=== PATIENT | female | born 1955 | race Caucasian/White ===

== ENCOUNTER → 2020-02-12 12:25 | Outpatient (BNVA) | payer BC, SELFPAY | PROVIDERS: Family Provider Nurse Practitioner Family; Visit Provider Nurse Practitioner Family | DX: I10 Essential (primary) hypertension (principal); F41.9 Anxiety disorder, unspecified; F32.9 Major depressive disorder, single episode, unspecified; M79.7 Fibromyalgia; K21.9 Gastro-esophageal reflux disease without esophagitis; G47.00 Insomnia, unspecified; Z79.890 Hormone replacement therapy; H66.90 Otitis media, unspecified, unspecified ear | CPT/HCPCS: 80053; 81001; 84443; 85025 ==

== ENCOUNTER → 2020-07-27 09:47 | Outpatient (BNVA) | payer MEDICARE, SELFPAY | PROVIDERS: Family Provider Nurse Practitioner Family; Visit Provider Nurse Practitioner Family | DX: Z20.828 Contact with and (suspected) exposure to other viral communicable diseases (principal); J06.9 Acute upper respiratory infection, unspecified; R53.83 Other fatigue | CPT/HCPCS: 87635 ==

== ENCOUNTER 2020-11-13 09:46 | Outpatient (CLI) | payer MEDICARE, SELFPAY ==
--- NOTE | 2020-11-13 10:00 | MM_ITS ---
WS: [id number] BILATERAL DIGITAL SCREENING MAMMOGRAPHY WITH CAD CLINICAL INFORMATION: Z12.31 - Encounter for screening mammogram for malignant neoplasm of breast HISTORY: Screening mammogram. No current complaints. COMPARISON: TECHNIQUE: Bilateral CC and MLO views. FINDINGS: Scattered fibroglandular densities bilaterally. No suspicious focal mass, asymmetry, calcifications, or architectural distortion. No evidence of malignancy. Punctate calcification right breast. MM/[place] [id number] IMPRESSION: BI-RADS: 2-Benign FOLLOW UP: 1 Year Follow-up Recommend return to annual screening mammography.
== END 2020-11-13 09:47 | disposition home or self-care (01) ==
PROVIDERS: PCP Nurse Practitioner Family; Visit Provider Nurse Practitioner Family
DX: Z12.31 Encounter for screening mammogram for malignant neoplasm of breast (principal)
CPT/HCPCS: 77067

== ENCOUNTER → 2021-02-04 12:19 | Outpatient (BNVA) | payer MEDICARE, SELFPAY | PROVIDERS: PCP Nurse Practitioner Family; Visit Provider Nurse Practitioner Family | DX: I10 Essential (primary) hypertension (principal); R53.83 Other fatigue; Z79.899 Other long term (current) drug therapy; E55.9 Vitamin D deficiency, unspecified; Z13.6 Encounter for screening for cardiovascular disorders; G47.00 Insomnia, unspecified; R06.02 Shortness of breath; F41.9 Anxiety disorder, unspecified; F32.9 Major depressive disorder, single episode, unspecified | CPT/HCPCS: 80053; 80061; 81003; 82306; 82607; 82746; 83036; 84439; 84443; 85025 ==

== ENCOUNTER → 2021-03-30 11:53 | Outpatient (BNVA) | payer MEDICARE, SELFPAY | PROVIDERS: PCP Nurse Practitioner Family; Visit Provider Nurse Practitioner Family | DX: D58.2 Other hemoglobinopathies (principal) | CPT/HCPCS: 85007; 85027 ==

== ENCOUNTER 2021-04-21 14:15 | Outpatient (CLI) | payer MEDICARE, SELFPAY ==
[2021-04-21 15:00] LABS: Basophils # 0.1 10^3/uL (0.0-0.1); Basophils % 0.5 %; Eosinophils # 0.4 10^3/uL (0.0-0.8); Eosinophils % 3.8 %; Hematocrit 45.7 % (37.0-47.0); Hemoglobin 15.6 g/dL (11.5-15.3); Lymphocytes % 50.1 %; Mean Corpuscular HGB Conc 34.1 g/dL (30.0-36.0); Mean Corpuscular Hemoglobin 32.8 pg (28.0-34.0); Mean Platelet Volume 10.8 fL (7.4-10.4); Monocytes # 0.6 10^3/uL (0.2-0.9); Monocytes % 5.6 %; Neutrophils # 3.95 10^3/uL (1.8-7.7); Neutrophils % 39.8 %; Nucleated Red Blood Cells % 0.2 %; Platelet Count 250 10^3/cmm (130-400); Red Blood Count 4.76 10^6/uL (4.1-5.3); Red Cell Distribution Width 12.6 % (12.1-15.1); White Blood Count 9.9 10^3/uL (4.0-10.0)
--- NOTE | 2021-04-21 17:17 | ONC CON_ITS ---
Dr. Wilde New Patient Note Patient: Elsi Painter Unit #: [id number]: 1955 Dicatated By: Sveta Wilde M.D.Date of Visit: Apr 21, 2021 Onc MED New Patient/Consult Referring Physician: Tia Aragon NP History of Present Illness: Ms. Elsi Painter, is a 65-year-old female with a history of asthma, fibromyalgia, anxiety/depression, hormone replacement therapy with Estratest (estrogen/testosterone) for postmenopausal symptom relief was found to have mildly elevated hemoglobin/hematocrit and white blood cell during her routine follow-up on March 30, 2021, as per medical record her hemoglobin was 16.6 normal being 11.5 to 15.3 g and hematocrit 50.4 normal being 37-47, platelets 240,000 with normal differential but absolute lymphocyte count was 5700 Patient has history of smoking but quit about 10 years ago and denies secondhand smoking and take alcohol occasionally. Denies any night sweats, denies any recurrent fever, denies any weight loss, denies any peripheral lymphadenopathy, denies any shortness of breath at rest on exertion, denies any palpitation. Denies any headaches blurred vision double vision. Past Medical History: Ms. Painter's medical history consists of anxiety, asthma, depression, fibromyalgia, gastroesophageal reflux disease, hypertension, irritable bowel syndrome with constipation, and vitamin D deficiency. Past Surgical History: Ms. Painter's surgical/procedural history consists of bunionectomy, cholecystectomy, hysterectomy, covid vaccine #2 in 2020, covid vaccine #1 in 2020, and caesarean section in 1986. Medications: Advair HFA 1 Inhalation (of 115-21 mcg/act) Aerosol Inhalation ac (tid) & at bedtime, Albuterol Sulfate Aerosol Powder, Breath Activated Inhalation PRN, clonazePAM 1 Tablet (of 0.5 mg) Oral b.i.d., Cymbalta 1 Capsule (of 60 mg) Capsule Delayed Release Particles Oral daily, Est Estrogens-Methyltest 1 Tablet (of 0.625-1.25 mg) Oral daily, Gabapentin 1 Capsule (of 300 mg) Oral t.i.d., hydroCHLOROthiazide 1 Tablet (of 25 mg) Oral daily, Metoprolol Succinate ER 1 Tablet (of 100 mg) Tablet SR 24 HR Oral daily, Omeprazole 1 Capsule (of 40 mg) Capsule Delayed Release Oral daily, traZODone HCl 1 Tablet (of 300 mg) Oral at bedtime, ZyrTEC Allergy 1 Tablet (of 10 mg) Capsule Oral daily Allergies: Clarithromycin and Codeine Sulfate. Social History: Ms. Painter is . Ms. Painter has never smoked. She drinks occasionally. 8 beers per week. Family History: Ms. Painter's mother is alive. Ms. Painter's father is . Ms. Painter has 2 brothers: 2 alive. She has 2 sisters: 2 alive. Review Of Symptoms: Review of Systems is not available for this patient. Vital Signs: Performed on Apr 21, 2021 16:15: 3, 5, 27.76, 1.88 sq.m, 66 in, 99 %, 69 /min, 18 /min, 131/77 mm(hg), 97.5 F (LOW), and 172 lbs (HIGH). Performance Status: 0 - Fully active, able to carry on all predisease activities without restrictions. (ECOG) Physical Examination: ENMT - No mouth sores, no thrush, no jaundice, no cervical or axillary lymphadenopathy, Respiratory - Lungs are clear to auscultation, Cardiovascular - Regular rate and rhythm of heart, Abdomen - Soft, bowel sounds present, Extremities - No visible edema. Lab/Imaging: Most recent lab results are not available for this patient. Impression: Mild leukocytosis/lymphocytosis etiology could be reactive versus early lymphoproliferative disorder like CLL Mildly elevated hemoglobin/hematocrit could be reactive or secondary to testosterone in hormone replacement therapy for postmenopausal symptom relief or intermittent hypoxia due to asthma or Dehydration, or primary but less likely. Postmenopausal, on hormonal therapy with Estratest Asthma History of smoking but quit 10 years ago Hypertension Plan: Discussed with patient regarding her CBC done today which showed white blood count 9.9 hemoglobin 15.6 hematocrit 45.7 platelets 250,000 and absolute lymphocyte count 5000 Clinically, patient is doing well with no B symptoms, no evidence of peripheral lymphadenopathy on physical exam, no organomegaly. Her repeat labs shows white blood count in normal range but mildly elevated lymphocyte count, hematocrit within normal range. History of mildly elevated hematocrit/leukocytosis could be due to subclinical asthma exacerbation or due to testosterone supplement part of her hormone replacement therapy but repeat lab work-up shows resolution of mild leukocytosis/lymphocytosis and mildly elevated hematocrit. At this point, no further work-up from hematology point of view rather observation, so we will see her back in 1 month with CBC Patient was also advised to establish care with pulmonology to optimize her pulmonary function and asthma care Signed By: Sveta Wilde M.D. <<Signature on File>>
== END 2021-04-21 14:16 | disposition home or self-care (01) ==
LOC: ONCMED 14:27
PROVIDERS: PCP Nurse Practitioner Family; Visit Provider Internal Medicine Hematology & Oncology
DX: D72.829 Elevated white blood cell count, unspecified (principal); Z79.899 Other long term (current) drug therapy
CPT/HCPCS: 36415; 85025; 99204

== ENCOUNTER → 2021-07-14 14:24 | Outpatient (BNVA) | payer MEDICARE, SELFPAY | PROVIDERS: PCP Nurse Practitioner Family; Visit Provider Internal Medicine Hematology & Oncology | DX: D58.2 Other hemoglobinopathies (principal); D72.820 Lymphocytosis (symptomatic); D72.829 Elevated white blood cell count, unspecified | CPT/HCPCS: 85025 ==

== ENCOUNTER → 2021-12-08 09:47 | Outpatient (BNVA) | payer MEDICARE, SELFPAY | PROVIDERS: PCP Nurse Practitioner Family; Visit Provider Nurse Practitioner | DX: Z13.6 Encounter for screening for cardiovascular disorders (principal); R53.83 Other fatigue | CPT/HCPCS: 80061; 84443 ==

== ENCOUNTER 2021-12-25 12:44 | Outpatient (CLI) | payer MEDICARE, SELFPAY ==
--- NOTE | 2021-12-25 13:02 | MM_ITS ---
WS: [id number] BILATERAL 3D TOMOSYNTHESIS DIGITAL SCREENING MAMMOGRAPHY WITH CAD CLINICAL INFORMATION: SCREENING HISTORY: Screening mammogram. No current complaints. COMPARISON: November 13, 2020 TECHNIQUE: Bilateral CC and MLO views. FINDINGS: Scattered fibroglandular densities bilaterally. Lucent centered calcification RIGHT breast. No suspic ious focal mass, asymmetry, calcifications, or architectural distortion. No evidence of malignancy. MM/[place] [id number] IMPRESSION: BI-RADS: 2-Benign FOLLOW UP: 1 Year Follow-up Recommend return to annual screening mammography.
== END 2021-12-25 12:45 | disposition home or self-care (01) ==
LOC: RAD 12:45
PROVIDERS: PCP Nurse Practitioner; Visit Provider Nurse Practitioner Family
DX: Z12.31 Encounter for screening mammogram for malignant neoplasm of breast (principal)
CPT/HCPCS: 77063; 77067

== ENCOUNTER → 2022-10-06 09:29 | Outpatient (BNVA) | payer MEDICARE, SELFPAY | PROVIDERS: PCP Nurse Practitioner; Visit Provider Family Medicine | DX: F41.9 Anxiety disorder, unspecified (principal); F32.9 Major depressive disorder, single episode, unspecified; Z78.0 Asymptomatic menopausal state; R06.02 Shortness of breath; J45.909 Unspecified asthma, uncomplicated; F51.01 Primary insomnia; M79.7 Fibromyalgia; I10 Essential (primary) hypertension; E78.5 Hyperlipidemia, unspecified; R53.83 Other fatigue; Z13.6 Encounter for screening for cardiovascular disorders; E78.1 Pure hyperglyceridemia; E66.3 Overweight; K58.1 Irritable bowel syndrome with constipation; Z79.899 Other long term (current) drug therapy | CPT/HCPCS: 80053; 80061; 83036; 84443; 85025 ==

== ENCOUNTER → 2022-11-03 09:21 | Outpatient (BNVA) | payer MEDICARE, SELFPAY | PROVIDERS: PCP Nurse Practitioner; Visit Provider Family Medicine | DX: Z79.899 Other long term (current) drug therapy (principal); F41.9 Anxiety disorder, unspecified; F32.9 Major depressive disorder, single episode, unspecified; Z78.0 Asymptomatic menopausal state; F51.01 Primary insomnia; E66.3 Overweight | CPT/HCPCS: 80307 ==

== ENCOUNTER 2022-12-28 12:36 | Outpatient (CLI) | payer MEDICARE, SELFPAY ==
--- NOTE | 2022-12-28 | MM_ITS ---
WS: [id number] BILATERAL 3D TOMOSYNTHESIS DIGITAL SCREENING MAMMOGRAPHY WITH CAD CLINICAL INFORMATION: ANNUAL SCREENING HISTORY: Screening mammogram. Chronic pain and soreness COMPARISON: December 25, 2021 TECHNIQUE: Bilateral CC and MLO views. FINDINGS: Scattered fibroglandular densities bilaterally. Increasing asymmetric density subareolar RIGHT breast measuring 11 mm best seen on the MLO view. Recommend further evaluation with spot diagnostic mammogr aphy and ultrasound. Lucent centered calcification RIGHT breast. LEFT breast is unchanged. MM/[place] [id number] IMPRESSION: BI-RADS: 0-Incomplete: Need additional imaging evaluation FOLLOW UP: Need Additional Imaging RECOMMEND RIGHT BREAST DIAGNOSTIC MAMMOGRAPHY AND ULTRASOUND.
== END 2022-12-28 12:37 | disposition home or self-care (01) ==
LOC: RAD 12:42
PROVIDERS: PCP Family Medicine; Visit Provider Nurse Practitioner
DX: Z12.31 Encounter for screening mammogram for malignant neoplasm of breast (principal)
CPT/HCPCS: 77063; 77067

== ENCOUNTER 2023-01-13 11:34 | Outpatient (CLI) | payer MEDICARE, SELFPAY ==
--- NOTE | 2023-01-13 11:40 | MM_ITS ---
WS: [id number] RIGHT 3D TOMOSYNTHESIS DIGITAL MAMMOGRAPHY WITH CAD CLINICAL INFORMATION: ABNORMAL MAMMO HISTORY: Milky discharge RIGHT breast. Additional views. COMPARISON: December 28, 2022 TECHNIQUE: 2 views of the right breast were obtained. FINDINGS: Scattered fibroglandular densities of the right breast. Previously described asymmetric density subar eolar RIGHT breast partially compresses out on the spot compression views. This persist on the SMLO v iew. Ultrasound is described below. ULTRASOUND BREAST RIGHT TECHNIQUE: Ultrasound right breast focused area of concern. CLINICAL INFORMATION: ABNORMAL MAMMO FINDINGS: Ultrasound RIGHT breast subareolar. Mild underlying ductal ectasia. No suspicious cystic or solid les ions. No suspicious lesions to target for biopsy. IMPRESSION: MM/[place] [id number] BI-RADS: 2-Benign FOLLOW UP: 1 Year Follow-up Recommend return to annual screening mammography.
--- NOTE | 2023-01-13 12:45 | US_ITS ---
WS: [id number] RIGHT 3D TOMOSYNTHESIS DIGITAL MAMMOGRAPHY WITH CAD CLINICAL INFORMATION: ABNORMAL MAMMO HISTORY: Milky discharge RIGHT breast. Additional views. COMPARISON: December 28, 2022 TECHNIQUE: 2 views of the right breast were obtained. FINDINGS: Scattered fibroglandular densities of the right breast. Previously described asymmetric density subar eolar RIGHT breast partially compresses out on the spot compression views. This persist on the SMLO v iew. Ultrasound is described below. ULTRASOUND BREAST RIGHT TECHNIQUE: Ultrasound right breast focused area of concern. CLINICAL INFORMATION: ABNORMAL MAMMO FINDINGS: Ultrasound RIGHT breast subareolar. Mild underlying ductal ectasia. No suspicious cystic or solid les ions. No suspicious lesions to target for biopsy. IMPRESSION: US/US breast RT limited* [id number] BI-RADS: 2-Benign FOLLOW UP: 1 Year Follow-up Recommend return to annual screening mammography.
== END 2023-01-13 11:35 | disposition home or self-care (01) ==
PROVIDERS: PCP Family Medicine; Visit Provider Nurse Practitioner
DX: R92.8 Other abnormal and inconclusive findings on diagnostic imaging of breast (principal); N64.52 Nipple discharge
CPT/HCPCS: 76642; 77061; G0279

== ENCOUNTER → 2023-01-18 09:53 | Outpatient (BNVA) | payer MEDICARE, SELFPAY | PROVIDERS: PCP Family Medicine; Visit Provider Family Medicine | DX: E66.3 Overweight (principal); R74.01 Elevation of levels of liver transaminase levels | CPT/HCPCS: 80053 ==

== ENCOUNTER 2024-01-12 08:24 | Outpatient (CLI) | payer MEDICARE, SELFPAY ==
--- NOTE | 2024-01-12 08:29 | XR_ITS ---
WS: [id number] Lumbar spine, 6 views, both obliques, lateral views in flexion, extension and neutral position, AP vi ew, 01/12/2024 Clinical Data: M51.16 - Intervertebral disc disorders with radiculopathy... Comparison: None. Findings: No compression fractures or subluxation is seen. There is degenerative disc narrowing at L5-S1. The l umbar vertebra L2-L5 show osteophyte formation. There is facet joint arthritis from L3-L4 to L5-S1. The transverse processes and SI joints are normal. The oblique films show no spondylolysis. On flexion and extension there is no subluxation or limitati on of motion. There are cholecystectomy clips in the right upper quadrant. XR/XR lumbar spine 6V w f/e [id number] Impression: 1. Degenerative disc narrowing at L5-S1 with multilevel osteophytes and facet j oint arthritis. 2. No spondylolysis. 3. Negative for limitation of motion or subluxation on flexion or extension.
== END 2024-01-12 08:25 | disposition home or self-care (01) ==
LOC: RAD 08:26
PROVIDERS: PCP Family Medicine; Visit Provider Nurse Practitioner Family
DX: M51.16 Intervertebral disc disorders with radiculopathy, lumbar region (principal); M25.78 Osteophyte, vertebrae; M47.816 Spondylosis without myelopathy or radiculopathy, lumbar region; M47.817 Spondylosis without myelopathy or radiculopathy, lumbosacral region
CPT/HCPCS: 72114

== ENCOUNTER 2024-03-13 06:00 | Outpatient (RCR) | payer MEDICARE, SELFPAY | END 2024-03-21 23:59 | disposition home or self-care (01) | LOC: WPT 06:00 | PROVIDERS: PCP Nurse Practitioner Family; Visit Provider Nurse Practitioner Family | DX: M51.16 Intervertebral disc disorders with radiculopathy, lumbar region (principal) | CPT/HCPCS: 97110; 97161 ==

== ENCOUNTER → 2024-03-22 08:24 | Outpatient (BNVA) | payer MEDICARE, SELFPAY | PROVIDERS: PCP Family Medicine; Visit Provider Nurse Practitioner Family | DX: Z79.890 Hormone replacement therapy (principal); Z79.899 Other long term (current) drug therapy; E55.9 Vitamin D deficiency, unspecified; E78.5 Hyperlipidemia, unspecified; I10 Essential (primary) hypertension | CPT/HCPCS: 80053; 80061; 81003; 82306; 83036; 84443; 85025 ==

== ENCOUNTER 2024-03-27 12:45 | Outpatient (CLI) | payer MEDICARE, SELFPAY ==
--- NOTE | 2024-03-27 12:55 | MM_ITS ---
WS: [id number] BILATERAL 3D TOMOSYNTHESIS DIGITAL SCREENING MAMMOGRAPHY WITH CAD CLINICAL INFORMATION: Z12.39 - Encounter for other screening for malignant neop... HISTORY: Screening mammogram. No current complaints. COMPARISON: 2022 TECHNIQUE: Bilateral CC and MLO views. FINDINGS: Scattered fibroglandular densities bilaterally. No suspicious focal mass, asymmetry, calcifications, or architectural distortion. No evidence of malignancy. Incidental lucent centered calcification RIGH T breast. MM/[place] [id number] IMPRESSION: BI-RADS: 2-Benign FOLLOW UP: 1 Year Follow-up Recommend return to annual screening mammography.
== END 2024-03-27 12:46 | disposition home or self-care (01) ==
LOC: RAD 12:46
PROVIDERS: PCP Family Medicine; Visit Provider Nurse Practitioner Family
DX: Z12.31 Encounter for screening mammogram for malignant neoplasm of breast; R92.323 Mammographic fibroglandular density, bilateral breasts
CPT/HCPCS: 77063; 77067

== ENCOUNTER 2024-06-05 15:47 | Oncology outpatient (recurring) (ONCR) | payer MEDICARE, SELFPAY ==
[2024-05-22 14:53] LABS: Basophils % 0.5 %; Eosinophils # 0.3 10^3/uL (0.0-0.8); Eosinophils % 3.1 %; Hematocrit 50.9 % (36-47); Lymphocytes # 3.5 10^3/uL (0.8-4.8); Lymphocytes % 43.1 %; Mean Corpuscular HGB Conc 33.4 g/dL (30-55); Mean Corpuscular Hemoglobin 32.1 pg (27-33); Mean Platelet Volume 9.7 fL (7.4-10.4); Monocytes # 0.7 10^3/uL (0.2-0.9); Monocytes % 8.2 %; Neutrophils # 3.62 10^3/uL (1.8-7.7); Neutrophils % 44.7 %; Nucleated Red Blood Cells % 0 %; Platelet Count 354 10^3/cmm (157-399); Red Cell Distribution Width 12.1 % (12.1-15.1); White Blood Count 8.09 10^3/uL (3.29-11.43)
[2024-05-22 15:10] LABS: Alanine Aminotransferase 43 U/L (0-33); Albumin Level 4.2 g/dL (3.5-5.2); Alkaline Phosphatase 46 U/L (35-105); Anion Gap 15.1 (5-19); Aspartate Amino Transferase 28 U/L (0-32); Blood Urea Nitrogen 5 mg/dL (8-23); Calcium 8.6 mg/dL (8.5-10.5); Carbon Dioxide 30 mmol/L (22-29); Chloride 93 mmol/L (98-107); Globulin 2.8 g/dL (1.3-4.6); Glomerular Filtration Rate 71.1 mL/min (90-130); Glucose 89 mg/dL (65-115); Lactate Dehydrogenase 284 U/L (135-214); Osmolality Calculated 275 mOsm/kg (285-295); Potassium 4.1 mmol/L (3.5-5.1); Sodium 134 mmol/L (136-145); Total Bilirubin 0.5 mg/dL (0.15-1.2)
[2024-05-22 15:32] LABS: Ferritin 225 ng/mL (15-150); Iron 87 ug/dL (37-145); Percent Saturation 30.2 % (20-50); Total Iron Binding Capacity 288 mcg/dl; Unsaturated Iron Binding 201 ug/dL (112-347)
--- NOTE | 2024-05-22 16:42 | PC.NURSE ---
4 IV attempts were attempted and patient declined any further attempts. patient rescheduled for Tuesday.
[2024-05-25 09:38] LABS: Hematocrit 48.1 % (36-47)
[2024-05-25 09:59] VITALS: BP 121/77; PULSE 66; RESP 16; TEMP 35.8; O2SAT 96
[2024-05-25 10:36] VITALS: BP 123/80; PULSE 67; RESP 16; O2SAT 97
[2024-05-25] MEDS: sodium chloride 0.9% 500 ML 999 ML IV (10:37)
[2024-05-25 10:58] VITALS: BP 146/78; PULSE 68; RESP 16; O2SAT 99
[2024-05-28 15:25] LABS: JAK2 Exon 12 Mutation NOT DETECTED (NOT DETECTED); JAK2 V617 Block Specimen ID BLOOD; JAK2 V617 Clinical Indication POLYCYTHEMIA; JAK2 V617 Mutation NOT DETECTED (NOT DETECTED); JAK2 V617 Specimen Source BLOOD; Specimen Source WB
[2024-05-29 15:48] LABS: Soluble Transferrin Receptor 0.94 mg/L (0.76-1.76)
[2024-06-05 16:11] LABS: Basophils # 0.1 10^3/uL (0.0-0.1); Basophils % 0.8 %; Eosinophils # 0.6 10^3/uL (0.0-0.8); Eosinophils % 6.8 %; Hematocrit 49.2 % (36-47); Lymphocytes % 34.6 %; Mean Corpuscular HGB Conc 34.3 g/dL (30-55); Mean Corpuscular Hemoglobin 32.1 pg (27-33); Mean Corpuscular Volume 93.5 fl (85-98); Mean Platelet Volume 9.7 fL (7.4-10.4); Monocytes # 0.5 10^3/uL (0.2-0.9); Neutrophils # 4.39 10^3/uL (1.8-7.7); Neutrophils % 51.4 %; Nucleated Red Blood Cells % 0 %; Platelet Count 346 10^3/cmm (157-399); Red Blood Count 5.26 10^6/uL (3.85-5.65); Red Cell Distribution Width 11.9 % (12.1-15.1); White Blood Count 8.53 10^3/uL (3.29-11.43)
[2024-06-05 16:16] VITALS: BP 131/65; PULSE 67; RESP 17; O2SAT 95
[2024-06-05 16:42] LABS: Alanine Aminotransferase 56 U/L (0-33); Albumin Level 4.7 g/dL (3.5-5.2); Alkaline Phosphatase 50 U/L (35-105); Anion Gap 11.3 (5-19); Aspartate Amino Transferase 38 U/L (0-32); Blood Urea Nitrogen 9 mg/dL (8-23); Calcium 9.5 mg/dL (8.5-10.5); Carbon Dioxide 31 mmol/L (22-29); Chloride 91 mmol/L (98-107); Creatinine Clr Calc Pharmacy 60.5322; Ferritin 176 ng/mL (15-150); Globulin 3.3 g/dL (1.3-4.6); Glomerular Filtration Rate 62.1 mL/min (90-130); Glucose 86 mg/dL (65-115); Osmolality Calculated 268 mOsm/kg (285-295); Potassium 3.3 mmol/L (3.5-5.1); Sodium 130 mmol/L (136-145); Total Bilirubin 0.5 mg/dL (0.15-1.2)
[2024-06-05] MEDS: sodium chloride 0.9% 500 ML 999 ML IV (16:44)
[2024-06-05 16:50] LABS: Lactate Dehydrogenase 154 U/L (135-214)
[2024-06-05 16:55] VITALS: BP 141/79; PULSE 66; RESP 16; TEMP 36.3; O2SAT 96
[2024-06-12 22:29] LABS: CALR Exon 9 Mutation NOT DETECTED (NOT DETECTED); Clinical Indication polycythemia; MPL Exon 10 Mutation NOT DETECTED (NOT DETECTED); Specimen Source NOT GIVEN
[2024-06-27 14:37] LABS: CALR Exon Clinical Indication polycythemia
== END 2024-06-21 23:59 | disposition home or self-care (01) ==
PROVIDERS: PCP Family Medicine; Visit Provider Internal Medicine Hematology & Oncology
DX: Z53.9 Procedure and treatment not carried out, unspecified reason (principal); D75.1 Secondary polycythemia; D58.2 Other hemoglobinopathies; Z79.899 Other long term (current) drug therapy
CPT/HCPCS: 36415; 80053; 81219; 81270; 81279; 81339; 82728; 83540; 83550; 83615; 84238; 85014; 85018; 85025; 96360; 99195; 99204; J7040

== ENCOUNTER → 2024-06-12 08:38 | Outpatient (BNVA) | payer MEDICARE, SELFPAY | PROVIDERS: PCP Family Medicine; Visit Provider Nurse Practitioner Family | DX: R53.83 Other fatigue (principal) | CPT/HCPCS: 84443 ==

== ENCOUNTER → 2024-06-19 10:09 | Outpatient (BNVA) | payer MEDICARE, SELFPAY | PROVIDERS: PCP Family Medicine; Referring Provider Nurse Practitioner Family; Visit Provider Surgery | DX: K21.9 Gastro-esophageal reflux disease without esophagitis (principal); K59.09 Other constipation; R10.10 Upper abdominal pain, unspecified; R10.30 Lower abdominal pain, unspecified | CPT/HCPCS: 99204 ==

== ENCOUNTER 2024-07-03 09:45 | Day surgery (SDC) | payer MEDICARE, SELFPAY ==
[2024-07-03 10:11] VITALS: BP 131/74; PULSE 86; RESP 16; TEMP 36.3; O2SAT 97; BMI 23.8
--- NOTE | 2024-07-03 10:19 | W.PM.OPSUD ---
Surgery/Procedure H&P Update DATE OF PROCEDURE: July 03, 2024 DATE H&P PERFORMED: 06/19/24 H&P UPDATE INFORMATION: I have reviewed H&P completed within last 30 days, I have examined patient prior to procedure, No changes to prior documentation and H[place] is in [facility] date indicated PLANNED PROCEDURE: Operation Date: 07/03/24 11:15 Proposed Procedures p EGD(Not Applicable) - Daniel Westfall MD s Colonoscopy - 77574, 10915, G0121, K21.9, Z12.11(Not Applicable) - Daniel Westfall MD
[2024-07-03] MEDS: sodium chloride 0.9% 1,000 ML 30 ML IV (10:20)
--- NOTE | 2024-07-03 10:37 | ANES.PREANE2 ---
Pre-Anesthetic Assessment Height/Weight: Height 1.68 m Weight 67.132 kg Temp Pulse Resp BP Pulse Ox O2 Del Method 97.4 F L 86 16 131/74 97 Room Air 07/03/24 10:11 07/03/24 10:11 07/03/24 10:11 07/03/24 10:11 07/03/24 10:11 07/03/24 10:11 Preop Diagnosis: GERD, screening Operation Date: 07/03/24 11:15 Proposed Procedures p EGD(Not Applicable) - Daniel Westfall MD s Colonoscopy - 68425, 03046, G0121, K21.9, Z12.11(Not Applicable) - Daniel Westfall MD Was Beta Talita taken within 24 hours: N/A Was Clonidine taken within 24 hours: N/A Last intake: Intake Last Liquid Date 07/02/24 Last Liquid Time 22:00 Last Solid Date 07/01/24 Last Solid Time 11:00 Social No alcohol and No tobacco marijuana gummies and nicorette gum Exam alert and oriented x 3 Airway Submandibular: within normal limits Cervical ROM: within normal limits Mallampati: Class II Dentition: other Comments: Comments: missing front two incisors History/ROS No significant history except as noted Pulmonary Asthma and Chronic Obstructive Pulmonary Disease (quit smoking over 20 years ago- not been diagnosed) CV/HEM Arrythmia and Hypertension None reported Hepatic None reported GI Gastroesophageal Reflux Disease Metabolic None reported Musc/skel Fibromyalgia Neuropsych Anxiety and Headache Anesthetic Plan ASA status: 3 Anesthesia: MAC Risk of > 500 ml blood loss (7ml/kg in children): No Medications/Allergies Home Medications Medication Instructions Recorded Confirmed Last Taken Type epinephrine 0.3 mg/0.3 mL 0.3 mg (0.3 mL) IM Q10M PRN 07/25/20 06/27/24 Unknown Rx injection, auto-injector (EpiPen anaphylaxis #2 ea 2-[place]) clonidine HCl 0.1 mg tablet 0.1 mg PO BID PRN hypertensive 03/22/23 06/27/24 Unknown Rx emergency 30 days #60 tabs calcium carbonate (Tums) 200 mg PO QID PRN Heartburn 05/22/24 07/03/24 07/02/24 History marijuana gummies 10 mg PO PRN PRN anxiety, pain 05/22/24 06/27/24 06/30/24 History pantoprazole 40 mg tablet,delayed 40 mg PO QAM 30 weeks #30 tabs 06/12/24 07/03/24 07/02/24 Rx release (Protonix) docusate sodium 100 mg capsule 100 mg PO DAILY PRN Constipation 06/19/24 06/27/24 Unknown History (Colace) ondansetron 8 mg disintegrating 8 mg PO Q8H PRN nausea and 06/19/24 07/03/24 2 Months Ago Rx tablet vomiting #20 tabs ~05/03/24 albuterol sulfate 90 mcg/actuation 2 puff inhalation Q6H PRN 06/27/24 07/03/24 07/02/24 History aerosol inhaler Shortness Of Breath Or Wheezing baclofen 10 mg tablet 10 mg PO QPM PRN lower back pain 06/27/24 07/03/24 07/02/24 History dicyclomine 20 mg tablet 20 mg PO BID PRN Abdominal Pain 06/27/24 07/03/24 07/02/24 History (IBS) duloxetine 60 mg capsule,delayed 60 mg PO DAILY 06/27/24 07/03/24 07/02/24 History release fluticasone propionate 115 2 puff inhalation BID 06/27/24 07/03/24 07/02/24 History mcg-salmeterol 21 mcg/actuation HFA inhaler (Advair HFA) gabapentin 300 mg capsule 300 mg PO Q8H 06/27/24 07/03/24 07/02/24 History hydrochlorothiazide 25 mg tablet 25 mg PO DAILY 06/27/24 07/03/24 07/03/24 History metoprolol succinate 100 mg 100 mg PO DAILY 06/27/24 07/03/24 07/03/24 History tablet,extended release 24 hr trazodone 300 mg tablet 300 mg PO QPM 06/27/24 07/03/24 07/02/24 History Allergies Allergy/AdvReac Type Severity Reaction Status Date / Time clarithromycin [From Biaxin] AdvReac ADR-Nausea Verified 07/03/24 10:16 codeine AdvReac vomiting Verified 07/03/24 10:16 Current Medications Generic Name Dose Route Start Last Admin Trade Name Freq PRN Reason Stop Dose Admin Sodium Chloride 1,000 mls @ 30 mls/hr 07/03/24 10:15 07/03/24 10:20 Sodium Chloride 0.9% IV 30 mls/hr .Q24H BENJI Administration PFSH Anesthesia Medical History Colon cancer screening Elevated TSH Polycythemia Enrolled in chronic care management Otitis media Chronic back pain Breast cancer screening, high risk patient Encounter for mammogram to establish baseline mammogram Anxiety Overweight (BMI 25.0-29.9) Lumbar disc disease with radiculopathy Acute otitis media, bilateral Asthma Elevated hemoglobin Elevated hemoglobin Shortness of breath Irritable bowel syndrome with constipation Hypertension screen Vitamin D deficiency Insomnia Lower respiratory infection Upper respiratory infection Fatigue Allergic reaction Vitamin D deficiency Acute insomnia GERD (gastroesophageal reflux disease) Fibromyalgia Anxiety and depression Essential hypertension Hormone replacement therapy Postmenopausal Surgical History (Updated 06/19/24 @ 10:[address]) Status post bunionectomy History of section Status post cholecystectomy Status post hysterectomy Family History Other CAD (coronary artery disease) Cancer Diabetes Stroke Social History Smoking and tobacco/nicotine status: former use of tobacco/nicotine (quit 2011) Quit status (tobacco/nicotine): has quit using Year quit tobacco: 2011 Former quit date comment: tobacco use 20 years Alcohol intake: current Alcohol intake frequency: holidays/special occasions only Substance/Drug Use: never Data Anesthesia Cardiac Studies: No Data to Display
[2024-07-03 11:36] VITALS: BP 116/74; PULSE 92; RESP 18; TEMP 36.2; O2SAT 98
[2024-07-03 11:44] VITALS: BP 177/66; PULSE 101; RESP 18; TEMP 36.2; O2SAT 99
--- NOTE | 2024-07-03 11:59 | ANE.PACU2 ---
Inpatient post-anesthesia follow up: Airway intact: Yes Vital signs: Temperature 97.2 F Pulse Rate 101 Respiratory Rate 18 Blood Pressure 177/66 Pulse Oximetry 99 Oxygen Delivery Me thod Room Air Oxygen Flow Rate Fraction of Inspir ed Oxygen Hydration adequate: Yes Nausea and vomiting: No Pain level: 1 Mental status: Baseline
== END 2024-07-03 11:59 | disposition home or self-care (01) ==
PROVIDERS: PCP Nurse Practitioner Family; Visit Provider Surgery
PROC: 0DJ08ZZ Inspection of Upper Intestinal Tract, Via Natural or Artificial Opening Endoscopic (ICD-10-PCS; CPT 43235; principal; 2024-07-03 11:15)
PROC: 0DJD8ZZ Inspection of Lower Intestinal Tract, Via Natural or Artificial Opening Endoscopic (ICD-10-PCS; CPT 45378; 2024-07-03 11:15)
DX: Z12.11 Encounter for screening for malignant neoplasm of colon (principal); K21.9 Gastro-esophageal reflux disease without esophagitis; K44.9 Diaphragmatic hernia without obstruction or gangrene; K29.70 Gastritis, unspecified, without bleeding; K57.92 Diverticulitis of intestine, part unspecified, without perforation or abscess without bleeding; J44.9 Chronic obstructive pulmonary disease, unspecified; I10 Essential (primary) hypertension; Z87.891 Personal history of nicotine dependence
CPT/HCPCS: 43239; 88305; G0121; J2704; J7030

== ENCOUNTER 2024-07-31 12:41 | Oncology outpatient (recurring) (ONCR) | payer MEDICARE, SELFPAY ==
[2024-07-31 13:40] LABS: Basophils # 0.1 10^3/uL (0.0-0.1); Basophils % 0.5 %; Eosinophils # 0.3 10^3/uL (0.0-0.8); Eosinophils % 3.2 %; Hematocrit 47.6 % (36-47); Lymphocytes # 2.8 10^3/uL (0.8-4.8); Lymphocytes % 31.1 %; Mean Corpuscular HGB Conc 33.4 g/dL (30-55); Mean Corpuscular Hemoglobin 31.2 pg (27-33); Mean Corpuscular Volume 93.3 fl (85-98); Mean Platelet Volume 9.6 fL (7.4-10.4); Monocytes # 0.7 10^3/uL (0.2-0.9); Monocytes % 7.6 %; Neutrophils # 5.22 10^3/uL (1.8-7.7); Neutrophils % 57.4 %; Nucleated Red Blood Cells % 0 %; Platelet Count 272 10^3/cmm (157-399); Red Cell Distribution Width 12.2 % (12.1-15.1)
[2024-07-31 13:57] LABS: Alanine Aminotransferase 48 U/L (0-33); Albumin Level 4.5 g/dL (3.5-5.2); Alkaline Phosphatase 59 U/L (35-105); Anion Gap 12.5 (5-19); Aspartate Amino Transferase 37 U/L (0-32); Blood Urea Nitrogen 7 mg/dL (8-23); Calcium 10.5 mg/dL (8.5-10.5); Carbon Dioxide 31 mmol/L (22-29); Chloride 95 mmol/L (98-107); Globulin 3.2 g/dL (1.3-4.6); Glomerular Filtration Rate 99.1 mL/min (90-130); Glucose 88 mg/dL (65-115); Iron 48 ug/dL (37-145); Lactate Dehydrogenase 147 U/L (135-214); Osmolality Calculated 277 mOsm/kg (285-295); Percent Saturation 15.7 % (20-50); Potassium 3.5 mmol/L (3.5-5.1); Sodium 135 mmol/L (136-145); Total Bilirubin 0.4 mg/dL (0.15-1.2); Total Iron Binding Capacity 304 mcg/dl; Total Protein 7.7 g/dL (6.6-8.7); Unsaturated Iron Binding 256 ug/dL (112-347)
[2024-07-31] MEDS: sodium chloride 0.9% 250 ML IV (15:14)
[2024-07-31 15:44] VITALS: BP 144/80; PULSE 72; RESP 16; TEMP 36.1; O2SAT 97
[2024-08-07 12:28] LABS: Soluble Transferrin Receptor 1.15 mg/L (0.76-1.76)
== END 2024-08-21 23:59 | disposition home or self-care (01) ==
PROVIDERS: PCP Nurse Practitioner Family; Visit Provider Internal Medicine Hematology & Oncology
DX: D75.1 Secondary polycythemia (principal); Z87.891 Personal history of nicotine dependence; R06.02 Shortness of breath; R53.83 Other fatigue; R06.00 Dyspnea, unspecified; Z79.890 Hormone replacement therapy; Z79.899 Other long term (current) drug therapy; M54.9 Dorsalgia, unspecified
CPT/HCPCS: 36415; 80053; 83540; 83550; 83615; 84238; 85025; 99195; 99214; J7050

== ENCOUNTER → 2024-08-01 14:47 | Outpatient (BNVA) | payer MEDICARE, SELFPAY | PROVIDERS: PCP Nurse Practitioner Family; Visit Provider Surgery | DX: K21.9 Gastro-esophageal reflux disease without esophagitis | CPT/HCPCS: 99212 ==

== ENCOUNTER → 2024-08-24 09:43 | Outpatient (BNVA) | payer MEDICARE, SELFPAY | PROVIDERS: PCP Nurse Practitioner Family; Visit Provider Nurse Practitioner Family | DX: E55.9 Vitamin D deficiency, unspecified (principal); I10 Essential (primary) hypertension; E78.2 Mixed hyperlipidemia; R79.89 Other specified abnormal findings of blood chemistry; D75.1 Secondary polycythemia; R53.83 Other fatigue | CPT/HCPCS: 80053; 80061; 82306; 82728; 83550; 84443; 85025 ==

== ENCOUNTER 2024-10-02 12:00 | Oncology outpatient (recurring) (ONCR) | payer MEDICARE, SELFPAY ==
--- NOTE | 2024-09-27 14:45 | MR_ITS ---
WS: [id number] MRI LUMBAR SPINE NONCONTRAST TECHNIQUE: Sagittal T1, T2 and STIR imaging. Axial T1 and T2 imaging. CLINICAL INFORMATION: M51.369 - Other intervertebral disc degeneration, lumbar ... COMPARISON: None. FINDINGS: Mild lumbar curve. No acute compression. Disc base narrowing worse at L5-S1. L1-L2: Mild facet arthropathy. L2-L3: Mild facet arthropathy. Spinal canal and foramen are patent. L3-L4: Mild annular bulging. Tiny central and LEFT subarticular protrusion. Slight impingement on the LEFT subarticular recess and traversing LEFT L4 nerve root. Moderate facet arthropathy. Mild LEFT foraminal narrowing. RIGHT foramen is patent. Moderate facet arthropathy. L4-L5: Mild disc bulging with advanced facet arthropathy. Mild to moderate central canal stenosis. Impingement traversing L5 nerve roots bilaterally. Advanced facet arthropathy. Mild RIGHT foraminal narrowing impinges the exiting RIGHT L4 nerve root. LEFT foramen is patent. Small LEFT facet effusion. Tiny LEFT synovial cyst contributes to subarticular recess stenosis. Synovial cyst measures 4 mm. L5-S1: Mild disc osteophyte complex with endplate ridging. Moderate facet arthropathy. Mild LEFT greater than RIGHT foraminal narrowing. Visualized pelvic bony structures: Normal. Paravertebral soft tissues: Normal. Small disc protrusions in the midthoracic spine. MR/MR lumbar spine wo con* [id number] IMPRESSION: 1. Mild lumbar curve. No acute compression. 2. Mild to moderate central canal stenosis L4-5 with impingement on the subart icular recess bilaterally. 3. Small LEFT synovial cyst L4-5 measuring 4 mm. 4. Advanced facet arthropathy L4-5. 5. Disc bulging L3-4 with slight impingement traversing LEFT L4 nerve root in the subarticular recess. Mild LEFT L3-4 foraminal narrowing. 6. Mild RIGHT L4-5 and LEFT greater than RIGHT L5-S1 foraminal narrowing.
== END 2024-10-19 23:59 | disposition home or self-care (01) ==
PROVIDERS: PCP Nurse Practitioner Family; Visit Provider Nurse Practitioner Family
DX: Z53.9 Procedure and treatment not carried out, unspecified reason (principal)
CPT/HCPCS: 72148

== ENCOUNTER → 2024-10-15 09:30 | Outpatient (BNVA) | payer MEDICARE, SELFPAY | PROVIDERS: PCP Nurse Practitioner Family; Visit Provider Nurse Practitioner Family | DX: K92.1 Melena (principal); K91.30 Postprocedural intestinal obstruction, unspecified as to partial versus complete | CPT/HCPCS: 85025 ==

== ENCOUNTER → 2024-10-16 13:38 | Outpatient (BNVA) | payer MEDICARE, SELFPAY | PROVIDERS: PCP Nurse Practitioner Family; Visit Provider Nurse Practitioner Family | DX: Z09 Encounter for follow-up examination after completed treatment for conditions other than malignant neoplasm (principal); K92.1 Melena; K91.30 Postprocedural intestinal obstruction, unspecified as to partial versus complete | CPT/HCPCS: 82272 ==

== ENCOUNTER 2024-10-23 12:26 | Oncology outpatient (recurring) (ONCR) | payer MEDICARE, SELFPAY ==
[2024-10-23 13:23] LABS: Alanine Aminotransferase 14 U/L (0-33); Albumin Level 4.1 g/dL (3.5-5.2); Alkaline Phosphatase 78 U/L (35-105); Aspartate Amino Transferase 20 U/L (0-32); Blood Urea Nitrogen 10 mg/dL (8-23); Calcium 9.3 mg/dL (8.5-10.5); Carbon Dioxide 25 mmol/L (22-29); Chloride 97 mmol/L (98-107); Ferritin 188 ng/mL (15-150); Glomerular Filtration Rate 99.1 mL/min (90-130); Glucose 114 mg/dL (65-115); Iron 39 ug/dL (37-145); Osmolality Calculated 276 mOsm/kg (285-295); Percent Saturation 17.8 % (20-50); Sodium 133 mmol/L (136-145); Total Bilirubin 0.7 mg/dL (0.15-1.2); Total Iron Binding Capacity 219 mcg/dl; Total Protein 7.1 g/dL (6.6-8.7); Unsaturated Iron Binding 180 ug/dL (112-347)
[2024-10-23 13:29] LABS: Basophils # 0.1 10^3/uL (0.0-0.1); Basophils % 0.5 %; Eosinophils # 0.3 10^3/uL (0.0-0.8); Eosinophils % 2.7 %; Hematocrit 42.9 % (36-47); Lymphocytes # 3.4 10^3/uL (0.8-4.8); Lymphocytes % 31.6 %; Mean Corpuscular HGB Conc 32.9 g/dL (30-55); Mean Corpuscular Hemoglobin 30.7 pg (27-33); Mean Corpuscular Volume 93.3 fl (85-98); Mean Platelet Volume 9.9 fL (7.4-10.4); Monocytes # 0.8 10^3/uL (0.2-0.9); Monocytes % 7.1 %; Neutrophils # 6.28 10^3/uL (1.8-7.7); Neutrophils % 57.6 %; Nucleated Red Blood Cells % 0 %; Platelet Count 391 10^3/cmm (157-399); Red Cell Distribution Width 14.6 % (12.1-15.1); White Blood Count 10.88 10^3/uL (3.29-11.43)
--- NOTE | 2024-10-23 14:02 | PC.NURSE ---
Lab results shown to Ilene VEGA. HGB less than 15, HCT less than 50. Per Ilene JOHNP pt did not need transfusion (hx of tarry stool) or phlebotomy today. Pt voiced understanding./lc
== END 2024-11-19 23:59 | disposition home or self-care (01) ==
PROVIDERS: PCP Nurse Practitioner Family; Visit Provider Nurse Practitioner Family
DX: K92.1 Melena (principal); K91.30 Postprocedural intestinal obstruction, unspecified as to partial versus complete; R74.01 Elevation of levels of liver transaminase levels; D75.1 Secondary polycythemia; K22.2 Esophageal obstruction
CPT/HCPCS: 36415; 80053; 82728; 83540; 83550; 85025

== ENCOUNTER → 2024-10-30 08:50 | Outpatient (BNVA) | payer MEDICARE, SELFPAY | PROVIDERS: PCP Nurse Practitioner Family; Visit Provider Surgery | DX: K92.1 Melena (principal); K21.9 Gastro-esophageal reflux disease without esophagitis; K58.1 Irritable bowel syndrome with constipation | CPT/HCPCS: 99213 ==

== ENCOUNTER → 2024-11-06 13:50 | Outpatient (BNVA) | payer MEDICARE, SELFPAY | PROVIDERS: PCP Nurse Practitioner Family; Visit Provider Orthopaedic Surgery | DX: M54.9 Dorsalgia, unspecified (principal) | CPT/HCPCS: 72110; 99204 ==

== ENCOUNTER → 2024-11-14 10:12 | Outpatient (BNVA) | payer MEDICARE, SELFPAY | PROVIDERS: PCP Nurse Practitioner Family; Visit Provider Nurse Practitioner Family | DX: M54.50 Low back pain, unspecified (principal); G89.29 Other chronic pain; M62.830 Muscle spasm of back; Z87.891 Personal history of nicotine dependence | CPT/HCPCS: 99214 ==

== ENCOUNTER → 2024-11-22 14:02 | Outpatient (BNVA) | payer MEDICARE, SELFPAY | PROVIDERS: PCP Nurse Practitioner Family; Visit Provider Nurse Practitioner Family | DX: M79.18 Myalgia, other site (principal); M54.50 Low back pain, unspecified; G89.29 Other chronic pain; Z87.891 Personal history of nicotine dependence | CPT/HCPCS: 20553; 99214; J1010; J3490 ==

== ENCOUNTER 2024-11-29 10:22 | Oncology outpatient (recurring) (ONCR) | payer MEDICARE, SELFPAY ==
[2024-11-29 10:56] LABS: Basophils # 0.1 10^3/uL (0.0-0.1); Basophils % 0.7 %; Eosinophils # 0.5 10^3/uL (0.0-0.8); Eosinophils % 5.6 %; Lymphocytes # 3.7 10^3/uL (0.8-4.8); Lymphocytes % 44.6 %; Mean Corpuscular HGB Conc 30.5 g/dL (30-55); Mean Corpuscular Hemoglobin 30.3 pg (27-33); Mean Corpuscular Volume 99.5 fl (85-98); Mean Platelet Volume 10.2 fL (7.4-10.4); Monocytes # 0.6 10^3/uL (0.2-0.9); Monocytes % 6.8 %; Neutrophils # 3.53 10^3/uL (1.8-7.7); Neutrophils % 42.1 %; Nucleated Red Blood Cells % 0 %; Platelet Count 214 10^3/cmm (157-399); Red Blood Count 4.32 10^6/uL (3.85-5.65); Red Cell Distribution Width 13.7 % (12.1-15.1); White Blood Count 8.39 10^3/uL (3.29-11.43)
[2024-11-29 11:27] LABS: Alanine Aminotransferase 19 U/L (0-33); Albumin Level 3.1 g/dL (3.5-5.2); Alkaline Phosphatase 49 U/L (35-105); Anion Gap 14.4 (5-19); Aspartate Amino Transferase 22 U/L (0-32); Blood Urea Nitrogen 14 mg/dL (8-23); Calcium 8.5 mg/dL (8.5-10.5); Carbon Dioxide 20 mmol/L (22-29); Chloride 103 mmol/L (98-107); Creatinine Clr Calc Pharmacy 57.5221; Glomerular Filtration Rate 62.1 mL/min (90-130); Glucose 70 mg/dL (65-115); Osmolality Calculated 275 mOsm/kg (285-295); Potassium 4.4 mmol/L (3.5-5.1); Sodium 133 mmol/L (136-145); Total Bilirubin 0.3 mg/dL (0.15-1.2); Total Protein 6.1 g/dL (6.6-8.7)
== END 2024-12-19 23:59 | disposition home or self-care (01) ==
PROVIDERS: Internal Medicine; PCP Nurse Practitioner Family; Visit Provider Nurse Practitioner Family
DX: Z87.891 Personal history of nicotine dependence (principal); D58.2 Other hemoglobinopathies; Z90.49 Acquired absence of other specified parts of digestive tract; Z92.23 Personal history of estrogen therapy; Z90.710 Acquired absence of both cervix and uterus
CPT/HCPCS: 36415; 80053; 85025; 99213

== ENCOUNTER → 2024-12-06 10:21 | Outpatient (BNVA) | payer MEDICARE, SELFPAY | PROVIDERS: PCP Nurse Practitioner Family; Visit Provider Nurse Practitioner Family | DX: M54.50 Low back pain, unspecified (principal); G89.29 Other chronic pain; M62.830 Muscle spasm of back; Z87.891 Personal history of nicotine dependence | CPT/HCPCS: 99213 ==

== ENCOUNTER → 2024-12-18 12:28 | Outpatient (BNVA) | payer MEDICARE, SELFPAY | PROVIDERS: PCP Nurse Practitioner Family; Visit Provider Orthopaedic Surgery | DX: M48.062 Spinal stenosis, lumbar region with neurogenic claudication (principal) | CPT/HCPCS: 36415; 80053; 81001; 85025; 99214 ==

== ENCOUNTER → 2025-01-02 09:28 | Outpatient (BNVA) | payer MEDICARE, SELFPAY | PROVIDERS: PCP Nurse Practitioner Family; Visit Provider Family Medicine | DX: Z01.818 Encounter for other preprocedural examination (principal) | CPT/HCPCS: 93005 ==

== ENCOUNTER 2025-01-09 09:42 | Day surgery (SDC) | payer MEDICARE, SELFPAY ==
[2025-01-09] VITALS (11 sets, daily range): BP systolic 106–143; BP diastolic 58–92; PULSE 74–82; RESP 12–16; TEMP 36.2–37.2; O2SAT 92–97; BMI 22.2
[2025-01-09] MEDS: sodium chloride 0.9% 1,000 ML 30 ML IV (10:30)
--- NOTE | 2025-01-09 11:29 | W.PM.OPSUD ---
Surgery/Procedure H&P Update DATE OF PROCEDURE: January 09, 2025 DATE H&P PERFORMED: 12/18/24 H&P UPDATE INFORMATION: I have reviewed H&P completed within last 30 days, I have examined patient prior to procedure and No changes to prior documentation PREOP DIAGNOSIS: Lumbar stenosis neurogenic claudication PLANNED PROCEDURE: Operation Date: 01/09/25 14:05 Proposed Procedures p Lumbar Spine Decompression(Not Applicable) - Geoffrey Brown DO
--- NOTE | 2025-01-09 12:07 | ANES.PREANE2 ---
Pre-Anesthetic Assessment Height/Weight: Height 5 ft 6 in Weight 138 lb Temp Pulse Resp BP Pulse Ox O2 Del Method 97.3 F L 75 16 106/58 97 Room Air 01/09/25 10:11 01/09/25 10:11 01/09/25 10:11 01/09/25 10:11 01/09/25 10:11 01/09/25 10:11 Preop Diagnosis: Lumbar stenosis neurogenic claudication Operation Date: 01/09/25 14:05 Proposed Procedures p Lumbar Spine Decompression(Not Applicable) - Geoffrey Brown, DO Was Beta Talita taken within 24 hours: Yes Was Clonidine taken within 24 hours: N/A Last intake: Intake Last Liquid Date 01/08/25 Last Liquid Time 19:00 Last Solid Date 01/08/25 Last Solid Time 19:00 Social No alcohol and No tobacco Exam alert, oriented x 3, clear to auscultation bilaterally and regular rate & rhythm Airway Submandibular: within normal limits Mallampati: Class III Comments: Comments: Multiple missing teeth, denies any loose Anesthetic Plan ASA status: 3 Anesthesia: General Other: Patient states that she had a procedure years ago and got sick afterwards. Multiple procedures since that time with no issues NPO since yesterday evening History of hypertension on hydrochlorothiazide and metoprolol GERD on Protonix Labs reviewed acceptable for procedure. NA 130 at that time. 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 Plan for GETA Medications/Allergies Home Medications ?Medication ?Instructions ?Recorded ?Confirmed ?Last Taken ?Type epinephrine 0.3 mg/0.3 mL 0.3 mg (0.3 mL) IM Q10M PRN 07/25/20 01/08/25 Unknown Rx injection, auto-injector (EpiPen anaphylaxis #2 ea 2-[place]) calcium carbonate (Tums) 200 mg PO QID PRN Heartburn 05/22/24 01/08/25 07/02/24 History marijuana gummies 10 mg PO PRN PRN anxiety, pain 05/22/24 01/08/25 06/30/24 History ondansetron 8 mg disintegrating 8 mg PO Q8H PRN nausea and 06/19/24 01/08/25 2 Months Ago Rx tablet vomiting #20 tabs ~05/03/24 duloxetine 60 mg capsule,delayed 60 mg PO DAILY #90 caps 08/24/24 01/08/25 01/09/25 Rx release metoprolol succinate 100 mg 100 mg PO DAILY 90 days #90 tabs 08/24/24 01/08/25 01/09/25 Rx tablet,extended release 24 hr pantoprazole 40 mg tablet,delayed 40 mg PO BID 30 days #60 tabs 10/15/24 01/08/25 01/08/25 Rx release (Protonix) albuterol sulfate 90 mcg/actuation 1 inh inhalation Q4H PRN shortness 10/23/24 01/08/25 01/08/25 Rx aerosol inhaler (Ventolin HFA) of breath or wheezing #8.5 grams polyethylene glycol 3350 17 17 g PO DAILY PRN constipation 30 10/30/24 01/08/25 Unknown Rx gram/dose oral powder (Miralax) days #238 grams budesonide-formoterol HFA 160 2 inh inhalation BID 30 days #10.2 11/14/24 01/08/25 01/08/25 Rx mcg-4.5 mcg/actuation aerosol grams inhaler (Symbicort) celecoxib 200 mg capsule 200 mg PO BID #60 caps 12/12/24 01/08/25 01/08/25 Rx baclofen 10 mg tablet 10 mg PO BEDTIME 01/08/25 01/08/25 01/07/25 History gabapentin 300 mg capsule 300 mg PO BID 01/08/25 01/08/25 01/08/25 History hydrochlorothiazide 25 mg tablet 25 mg PO DAILY 01/08/25 01/08/25 01/09/25 History trazodone 300 mg tablet 300 mg PO BEDTIME 01/08/25 01/08/25 01/07/25 History Allergies Allergy/AdvReac Type Severity Reaction Status Date / Time clarithromycin (From Biaxin) AdvReac ADR-Nausea Verified 01/08/25 16:33 codeine AdvReac vomiting Verified 01/08/25 16:33 Current Medications Generic Name Dose Route Start Last Admin Trade Name Freq PRN Reason Stop Dose Admin Sodium Chloride 1,000 mls @ 30 mls/hr 01/09/25 10:15 01/09/25 10:30 Sodium Chloride 0.9% IV 01/10/25 10:14 30 mls/hr .Q24H BENJI Administration PFSH Anesthesia Medical History Postoperative intestinal obstruction Black tarry stools Post-op pain Esophageal stricture DDD (degenerative disc disease), lumbar Chronic idiopathic constipation Constipation Colon cancer screening Elevated TSH Polycythemia Enrolled in chronic care management Otitis media Chronic back pain Breast cancer screening, high risk patient Encounter for mammogram to establish baseline mammogram Anxiety Overweight (BMI 25.0-29.9) Lumbar disc disease with radiculopathy Acute otitis media, bilateral Asthma Elevated hemoglobin Elevated hemoglobin Shortness of breath Irritable bowel syndrome with constipation Hypertension screen Vitamin D deficiency Insomnia Lower respiratory infection Upper respiratory infection Fatigue Allergic reaction Vitamin D deficiency Acute insomnia GERD (gastroesophageal reflux disease) Fibromyalgia Anxiety and depression Essential hypertension Hormone replacement therapy Postmenopausal Surgical History Status post lumbar surgery 2018 [place], [place] Status post bunionectomy History of section Status post cholecystectomy Status post hysterectomy Family History Other CAD (coronary artery disease) Cancer Diabetes Stroke Social History Smoking and tobacco/nicotine status: never used tobacco/nicotine Quit status (tobacco/nicotine): has quit using Year quit tobacco: 2011 Former quit date comment: tobacco use 20 years Alcohol intake: current Alcohol intake frequency: holidays/special occasions only Substance/Drug Use: never
[2025-01-09] MEDS: ceFAZolin 2,000 mg SDV 2000 MG IVP (14:12)
[2025-01-09] MEDS: lidocaine-epi 1% 20 mL INJ 10 ML INJECTION (15:25)
--- NOTE | 2025-01-09 16:02 | XR_ITS ---
WS: [id number] Lumbar spine, C-arm fluoroscopy views, 01/09/2025 Clinical Data: OR PIC, DECOMPRESSION Comparison: Lumbar spine, 11/06/2024 Findings: Dr. Brown performed a lumbar decompression XR/XR lumbar spine 1V [id number] Impression: Lumbar decompression.
[2025-01-09] MEDS: HYDROcodone-acetaminophen 5-325 mg Tablet 1 TAB PO (16:34)
--- NOTE | 2025-01-09 17:05 | PM.OP ---
Operative Report Date of procedure: January 09, 2025 Pre-op diagnosis: Lumbar stenosis with neurogenic claudication Post-op diagnosis: same Procedure done: 1. L3-4 laminectomy with partial facetectomy 2. L4-5 laminectomy partial facetectomy Surgeon: Geoffrey Brown DO Estimated blood loss (mL): 15 Procedure: 1. L3-4 laminectomy with partial facetectomy 2. L4-5 laminectomy partial facetectomy Patient is brought to the operative suite. After undergoing anesthesia they are placed in the prone position. All areas of impingement are well padded. Patient is then prepped and draped in the normal sterile fashion. A skin incision is made over the L3/4 level. This is confirmed under c-arm guidance. A series of dilators are passed and the tubular retractor is docked on the L3 lamina. A bovie is used to clear the soft tissue off the lamina and the L 3/4 facet joint. A high speed raghu is then used to perform the laminectomy and take down the medial aspect of the L 3/4 facet joint. A kerrison rongeure was then used to take down the remaining lamina and smooth the edge of the laminectomy up to the point where the ligamentum flavum attaches. Attention was then brought to the medial aspect of the facet joint. The remaining medial aspect of the superior and inferior aspect of the facet joint were taken down with the kerrison from the pedicle of L3 to L 4. The facet joint had significant hypertrophy. Attention was then brought to the Ligamentum Flavum. The ligament was taken down from the lamina of L3 to L4 and out medially to the remaining facet joint. The ligament was thick. The dura was then exposed. The dura was in good repair. The L3 nerve was then traced with a curette out the L3/4 foramen and found to be adequately decompressed. The L4 nerve was traced with a curette around the L4 pedicle. The lateral recess was opened with a kerrison helping to further decompress the L4 nerve. Wound is then irrigated copiously with saline and surgiflo is used to stop any bleeding. The tubular retractor is removed A skin incision is made over the L4/5 level. This is confirmed under c-arm guidance. A series of dilators are passed and the tubular retractor is docked on the L4 lamina. A bovie is used to clear the soft tissue off the lamina and the L 4/5 facet joint. A high speed raghu is then used to perform the laminectomy and take down the medial aspect of the L 4/5 facet joint. A kerrison rongeure was then used to take down the remaining lamina and smooth the edge of the laminectomy up to the point where the ligamentum flavum attaches. Attention was then brought to the medial aspect of the facet joint. The remaining medial aspect of the superior and inferior aspect of the facet joint were taken down with the kerrison from the pedicle of L4 to L 5. The facet joint had significant hypertrophy. Attention was then brought to the Ligamentum Flavum. The ligament was taken down from the lamina of L4 to L5 and out medially to the remaining facet joint. The ligament was thick. The dura was then exposed. The dura was in good repair. The L4 nerve was then traced with a curette out the L4/5 foramen and found to be adequately decompressed. The L5 nerve was traced with a curette around the L5 pedicle. The lateral recess was opened with a kerrison helping to further decompress the L5 nerve. Wound is then irrigated copiously with saline and surgiflo is used to stop any bleeding. The tubular retractor is removed and the wound is closed with vicryl and monocryl suture. Glue is then used to protect the wound. A sterile dressing is then placed. Patient was then placed in the supine position and transferred to the PACU in stable condition.
--- NOTE | 2025-01-09 17:10 | ANE.PACU2 ---
Inpatient post-anesthesia follow up: Airway intact: Yes Vital signs: Temperature 98.2 F Pulse Rate 78 Respiratory Rate 16 Blood Pressure 143/74 Pulse Oximetry 96 Oxygen Delivery Me thod Room Air Oxygen Flow Rate Fraction of Inspir ed Oxygen Hydration adequate: Yes Nausea and vomiting: No Pain level: 1 Mental status: Baseline
== END 2025-01-09 17:10 | disposition home or self-care (01) ==
PROVIDERS: PCP Nurse Practitioner Family; Visit Provider Orthopaedic Surgery
PROC: (CPT 63005; principal; 2025-01-09 13:45)
DX: M48.062 Spinal stenosis, lumbar region with neurogenic claudication (principal); I10 Essential (primary) hypertension; K21.9 Gastro-esophageal reflux disease without esophagitis; M51.369 Other intervertebral disc degeneration, lumbar region without mention of lumbar back pain or lower extremity pain; G89.29 Other chronic pain; E66.9 Obesity, unspecified; Z68.22 Body mass index [BMI] 22.0-22.9, adult; M79.7 Fibromyalgia; F41.8 Other specified anxiety disorders; Z98.1 Arthrodesis status; Z87.891 Personal history of nicotine dependence
CPT/HCPCS: 63047; 63048; 72020; 76000; J0690; J1100; J2405; J3010; J7030; J9999

== ENCOUNTER 2025-04-01 11:22 | Outpatient (CLI) | payer MEDICARE, SELFPAY ==
--- NOTE | 2025-04-01 | MM_ITS ---
WS: [id number] BILATERAL SCREENING DIGITAL TOMOSYNTHESIS MAMMOGRAM WITH CAD HISTORY: ANNUAL SCREENING COMPARISON: 03/27/2024, 01/13/2023, 12/28/2022, 12/25/2021 Bilateral CC and MLO views with tomosynthesis and synthetic mammography submitted. Computer aided detection analyzed. Breast composition: There are scattered areas of fibroglandular density. No suspicious masses, microcalcifications or architectural distortion. Benign calcifications in each breast. MM/MM scr BI tomosynthesis [id number] IMPRESSION: BI-RADS: 2 - Benign. FOLLOW UP: 1 Year Follow-up
== END 2025-04-01 11:23 | disposition home or self-care (01) ==
LOC: RAD 11:23
PROVIDERS: PCP Nurse Practitioner Family; Visit Provider Nurse Practitioner Family
DX: Z12.31 Encounter for screening mammogram for malignant neoplasm of breast (principal); R92.323 Mammographic fibroglandular density, bilateral breasts; R92.1 Mammographic calcification found on diagnostic imaging of breast
CPT/HCPCS: 77063; 77067

== ENCOUNTER 2025-05-30 11:23 | Oncology outpatient (recurring) (ONCR) | payer MEDICARE, SELFPAY ==
[2025-05-30 12:22] LABS: Hematocrit 37.6 % (36-47); Hemoglobin 12.10 g/dL (11.27-16.99); Mean Corpuscular HGB Conc 32.2 g/dL (30-55); Mean Corpuscular Hemoglobin 30.9 pg (27-33); Mean Corpuscular Volume 95.9 fl (85-98); Nucleated Red Blood Cells % 0 %; Platelet Count 265 10^3/cmm (157-399); Red Blood Count 3.92 10^6/uL (3.85-5.65); White Blood Count 5.71 10^3/uL (3.29-11.43)
[2025-05-30 12:45] LABS: Alanine Aminotransferase 12 U/L (0-33); Albumin Level 3.9 g/dL (3.5-5.2); Alkaline Phosphatase 55 U/L (35-105); Anion Gap 13.1 (5-19); Aspartate Amino Transferase 18 U/L (0-32); Blood Urea Nitrogen 15 mg/dL (8-23); Calcium 9.1 mg/dL (8.5-10.5); Carbon Dioxide 28 mmol/L (22-29); Chloride 100 mmol/L (98-107); Globulin 2.9 g/dL (1.3-4.6); Glucose 80 mg/dL (65-115); Osmolality Calculated 284 mOsm/kg (285-295); Potassium 4.1 mmol/L (3.5-5.1); Sodium 137 mmol/L (136-145); Total Protein 6.8 g/dL (6.6-8.7)
[2025-05-30 12:58] LABS: Creatinine Clr Calc Pharmacy 51.6404
== END 2025-06-21 23:59 | disposition home or self-care (01) ==
PROVIDERS: Internal Medicine; PCP Nurse Practitioner Family; Visit Provider Nurse Practitioner Family
DX: D58.2 Other hemoglobinopathies (principal); E55.9 Vitamin D deficiency, unspecified
CPT/HCPCS: 36415; 80053; 85025; 99213